=== PATIENT | male | born 1950 | race Caucasian/White ===

== ENCOUNTER 2017-08-20 15:51 | Inpatient (IN) ==
[2017-08-20] MEDS ORDERED: *HR* Morphine 2 MG/ML SYRINGE IVP ONE (16:15)
[2017-08-20] MEDS ORDERED: Ondansetron 4 MG/2 ML VIAL IVP ONE (16:15)
--- NOTE | 2017-08-20 16:15 | Emergency Department Note ---
Disposition Clinical Impression: Transaminitis, Hypernatremia, Right upper quadrant pain Urinary tract infection Qualifiers: Urinary tract infection type: site unspecified Hematuria presence: with hematuria Qualified Code(s): N39.0 - Urinary tract infection, site not specified ; R31.9 - Hematuria, unspecified; R31.9 - Hematuria, unspecified Cholelithiasis Qualifiers: Cholelithiasis location: gallbladder Cholecystitis presence: with cholecystitis Cholecystitis acuity: acute Biliary obstruction: with biliary obstruction Qualified Code(s): K80.01 - Calculus of gallbladder with acute cholecystitis with obstruction Pneumonia Qualifiers: Pneumonia type: due to unspecified organism Laterality: unspecified laterality Lung location: unspecified part of lung Qualified Code(s): J18.9 - Pneumonia, unspecified organism Disposition: Admitted As Inpatient Condition: Fair Referrals: Mumtaz Woodward MD [Primary Care Provider] - Forms: ED Satisfaction Letter, Work/School Release Time of Disposition: 19:20 General Adult HPI - General Chief complaint: ED Abdominal Pain Stated complaint: abd pain Time Seen by Provider: 08/20/17 15:57 Source: patient Limitations: no limitations Nursing Notes Reviewed: Yes Vital Signs Reviewed: Yes - History of Present Illness HPI Narrative: Mr. Corona, 66-year-old male, presents from [facility] with concern of elevated white count found today on routine labs. Patient has severe Alzheimer's disease and is unable to answer direct questions. PMH: Alzheimer's disease, GERD, mass and lump of neck, tremor, dementia, malignant neoplasm of colon, essential hypertension, anxiety disorder, history of alcohol abuse Patient is DNR-CCA. Documentation on file. Pain Scale: 6 - Related Data Allergies Allergy/AdvReac Type Severity Reaction Status Date / Time No Known Allergies Allergy Verified 08/20/17 16:24 Limitations: ROS unobtainable due to patients medical condition Past Medical History - Past Medical History Medical history: Reports: cancer, GERD, seizures Psychiatric history: Reports: anxiety - Social History Smoking Status: Never smoker Smokeless Tobacco Status: No Alcohol use: Reports: none Drug use: Reports: none Physical Exam Vital Signs Reviewed General: Patient is awake and in no acute distress. He is able to follow me with his eyes. He appears older than stated age. He is nonverbal. HEENT: No facial asymmetry. Head is normocephalic and atraumatic. PERRLA. Oral mucosa dry. Cardiovascular: Heart regular rate and rhythm without clicks, rubs, gallops, or murmurs. No JVD. PMI nondisplaced. Respiratory: Symmetric chest rise with good respiratory effort. Bilateral breath sounds are clear without wheezing, crackles, or rhonchi. Abdomen: Bowel sounds present normoactive x-4 quadrants. Abdomen is soft, nondistended. Right upper quadrant tenderness. No organomegaly noted. Musculoskeletal: Unable to assess muscle strength secondary to patient's medical status. Neuro: Unable to assess patient's neurologic status secondary to his current baseline medical condition. Psych: Patient's affect is appropriate for situation. - General Limitations: no limitations General appearance: alert, in no apparent distress Course Course Narrative: Patient had a CT with contrast of his abdomen and pelvis 08/09 which showed a contracted gallbladder with either a wall of calcification or a rim calcified stone in the fundus. No dilation of biliary tree. Also showed transverse colon edema consistent with potential colitis. Patient's RUQ pain coupled with transaminitis and elevated ALP concerning for cholecystitis. Will cover with empiric antibiotics at this time. Usually, patient is hypernatremic. Urinalysis concerning for UTI. Empiric ceftriaxone will cover both UTI and possible infection cholecystitis. We will admit the patient to the hospitalist for continued evaluation and management. Discussed the patient with the admitting hospitalist, Dr. Collins, who agrees to accept the patient for continued evaluation and management. Vital Signs Temperature 98.2 F 08/20/17 15:52 Pulse Rate 112 08/20/17 15:52 Respiratory Rate 18 08/20/17 15:52 Blood Pressure 107/69 08/20/17 15:52 O2 Sat by Pulse Oximetry 95 08/20/17 15:52 Temperature 98.2 F 08/20/17 15:52 Pulse Rate 99 08/20/17 18:59 Respiratory Rate 18 08/20/17 18:59 Blood Pressure 101/66 08/20/17 18:59 O2 Sat by Pulse Oximetry 94 08/20/17 18:59 Oxygen Delivery Oxygen Delivery Room Air Medical Decision Making - Lab Data Result diagrams: 08/20/17 16:39 08/20/17 16:39 Lab Results 08/20/17 08/20/17 08/20/17 Range/Units 16:32 16:39 16:39 WBC 10.4 (4.3-11.1) K/mcL RBC 3.66 L (4.19-5.50) M/mcL Hgb 11.6 L (12.9-16.9) g/dL Hct 37.8 (37.5-50.1) % MCV 103.3 H (83.0-100.0) fL MCH 31.7 (28.0-33.3) pg MCHC 30.7 L (31.6-35.5) g/dL RDW 15.5 H (11.5-14.5) % Plt Count 570 H (140-400) K/mcL MPV 8.8 L (9.4-12.4) fL Immature Gran % 0.2 (0-4) % Seg Neutrophils % 81.3 % Lymphocytes % 12.4 % Monocytes % 5.2 % Eosinophils % 0.6 % Basophils % 0.3 % Neutrophils # 8.5 (1.6-8.9) K/mcL Lymphocytes # 1.3 (0.6-4.6) K/mcL Monocytes # 0.5 (0.0-1.3) K/mcL Eosinophils # 0.1 (0.0-0.6) K/mcL Basophils # 0.0 (0.0-0.2) K/mcL Sodium 157 H (136-145) mEq/L Potassium 3.9 (3.5-4.5) mEq/L Chloride 122 H (98-109) mEq/L Carbon Dioxide 23 (19-29) mEq/L BUN 69 H (8-26) mg/dL Creatinine 1.55 H (0.72-1.25) mg/dL Est GFR ( Amer) 54 L (> 60) Est GFR (Non-Af Amer) 45 L (> 60) BUN/Creatinine Ratio 45 H (6-26) Glucose 141 H (70-99) mg/dL Calculated Osmolality 346 H (280-300) Lactic Acid (0.5-2.2) mmol/L Calcium 9.1 (8.6-10.8) mg/dL Total Bilirubin 0.2 (0.2-1.2) mg/dL Direct Bilirubin 0.1 (0.0-0.5) mg/dL Indirect Bilirubin 0.1 (0.0-1.2) mg/dL AST 61 H (5-34) Units/L ALT 121 H (0-55) Units/L Alkaline Phosphatase 181 H (38-126) Units/L Serum Total Protein 8.1 (6.0-8.3) g/dL Albumin 2.5 L (3.5-5.0) g/dL Globulin 5.6 H (2.4-3.5) g/dL Albumin/Globulin Ratio 0.4 L (1.1-2.2) Lipase 21 (8-78) Units/L Urine Color Yellow (Yellow) Urine Clarity Turbid A (Clear) Urine pH 5.5 (5.0-8.0) pH Units Ur Specific [place] 1.021 (1.010-1.025) Urine Protein Trace (Neg-Trace) mg/dL Urine Glucose (UA) Normal (Normal) mg/dL Urine Ketones Negative (Negative) mg/dL Urine Blood Small H (Negative) Urine Nitrite Negative (Negative) Urine Bilirubin Negative (Negative) Urine Urobilinogen Normal (Normal) mg/dL Ur Leukocyte Esterase Large H (Negative) Urine Microscopic RBC 0-3 (0-3) per hpf Urine Microscopic WBC TNTC H (0-3) per hpf Ur Squamous Epith Cells Moderate H (None-Few) per lpf Urine Bacteria Moderate H (None-Few) per hpf Hyaline Casts None Seen (None-Few) per lpf Ur Culture Indicated? YES A (NO) 08/20/17 Range/Units 16:39 WBC (4.3-11.1) K/mcL RBC (4.19-5.50) M/mcL Hgb (12.9-16.9) g/dL Hct (37.5-50.1) % MCV (83.0-100.0) fL MCH (28.0-33.3) pg MCHC (31.6-35.5) g/dL RDW (11.5-14.5) % Plt Count (140-400) K/mcL MPV (9.4-12.4) fL Immature Gran % (0-4) % Seg Neutrophils % % Lymphocytes % % Monocytes % % Eosinophils % % Basophils % % Neutrophils # (1.6-8.9) K/mcL Lymphocytes # (0.6-4.6) K/mcL Monocytes # (0.0-1.3) K/mcL Eosinophils # (0.0-0.6) K/mcL Basophils # (0.0-0.2) K/mcL Sodium (136-145) mEq/L Potassium (3.5-4.5) mEq/L Chloride (98-109) mEq/L Carbon Dioxide (19-29) mEq/L BUN (8-26) mg/dL Creatinine (0.72-1.25) mg/dL Est GFR ( Amer) (> 60) Est GFR (Non-Af Amer) (> 60) BUN/Creatinine Ratio (6-26) Glucose (70-99) mg/dL Calculated Osmolality (280-300) Lactic Acid 1.2 (0.5-2.2) mmol/L Calcium (8.6-10.8) mg/dL Total Bilirubin (0.2-1.2) mg/dL Direct Bilirubin (0.0-0.5) mg/dL Indirect Bilirubin (0.0-1.2) mg/dL AST (5-34) Units/L ALT (0-55) Units/L Alkaline Phosphatase (38-126) Units/L Serum Total Protein (6.0-8.3) g/dL Albumin (3.5-5.0) g/dL Globulin (2.4-3.5) g/dL Albumin/Globulin Ratio (1.1-2.2) Lipase (8-78) Units/L Urine Color (Yellow) Urine Clarity (Clear) Urine pH (5.0-8.0) pH Units Ur Specific [place] (1.010-1.025) Urine Protein (Neg-Trace) mg/dL Urine Glucose (UA) (Normal) mg/dL Urine Ketones (Negative) mg/dL Urine Blood (Negative) Urine Nitrite (Negative) Urine Bilirubin (Negative) Urine Urobilinogen (Normal) mg/dL Ur Leukocyte Esterase (Negative) Urine Microscopic RBC (0-3) per hpf Urine Microscopic WBC (0-3) per hpf Ur Squamous Epith Cells (None-Few) per lpf Urine Bacteria (None-Few) per hpf Hyaline Casts (None-Few) per lpf Ur Culture Indicated? (NO) Critical Care Time Critical Care Time: Yes Total Critical Care Time: 35 Attestation: Critical care time 35 minutes. Attestation Statement - Attestation Attestation: Patient was seen with resident physician. I reviewed the history, physical, assessment and plan, and agree with the findings. I also personally evaluated this patient and had [id number] time with this patient. 66-year-old male sent to the emergency department today from detention because of an elevated white blood cell count. Patient is unable to provide any history and is really the only history got. Looking at his chart it seems like he has had some issues with his gallbladder in the past. On examination vital signs patient is mildly tachycardic blood pressure is good. ENT shows no abnormalities. Chest is regular rhythm and rate. Lungs slightly decreased breath sounds on the right side. Abdomen is soft he does not express tenderness there is no guarding or rigidity. Extremities unremarkable. Neurologically patient is unable to follow commands. ED course workup revealed hypernatremia. He also has probable pneumonia and urinary tract infection. We will start on antibiotics and have admitted to the hospitalist service for further evaluation and treatment. Critical care time 35 minutes. Agree with the resident physician assessment and plan.
[2017-08-20 16:47] LABS: Basophils % 0.3 %; Eosinophils # 0.1 K/mcL (0.0-0.6); Eosinophils % 0.6 %; Hematocrit 37.8 % (37.5-50.1); Hemoglobin 11.6 g/dL (12.9-16.9); Immature Granulocytes % 0.2 % (0-4); Lymphocytes # 1.3 K/mcL (0.6-4.6); Lymphocytes % 12.4 %; Mean Corpuscular HGB Conc 30.7 g/dL (31.6-35.5); Mean Corpuscular Hemoglobin 31.7 pg (28.0-33.3); Mean Corpuscular Volume 103.3 fL (83.0-100.0); Mean Platelet Volume 8.8 fL (9.4-12.4); Monocytes # 0.5 K/mcL (0.0-1.3); Monocytes % 5.2 %; Neutrophils # 8.5 K/mcL (1.6-8.9); Platelet Count 570 K/mcL (140-400); Red Blood Count 3.66 M/mcL (4.19-5.50); Red Cell Distribution Width 15.5 % (11.5-14.5); Segmented Neutrophils % 81.3 %
[2017-08-20 16:48] LABS: Bilirubin,Urine Negative (Negative); Blood,Urine Small (Negative); Clarity,Urine Turbid (Clear); Color,Urine Yellow (Yellow); Glucose,Urine (UA) Normal (Normal); Ketones,Urine Negative (Negative); Leukocyte Esterase,Urine Large (Negative); Nitrite,Urine Negative (Negative); PH,Urine 5.5 pH Units (5.0-8.0); Protein,Urine Trace mg/dL (Neg-Trace); Specific Gravity,Urine 1.021 (1.010-1.025); Urobilinogen,Urine Normal (Normal)
[2017-08-20 16:52] LABS: Bacteria,Urine Moderate per hpf (None-Few); Hyaline Casts,Urine None Seen per lpf (None-Few); RBC,Urine 0-3 per hpf (0-3); Squamous Epithelial Cell,Urine Moderate per lpf (None-Few); WBC,Urine TNTC per hpf (0-3)
[2017-08-20 17:02] LABS: Albumin 2.5 g/dL (3.5-5.0); Albumin/Globulin Ratio 0.4 (1.1-2.2); Bilirubin,Direct 0.1 mg/dL (0.0-0.5); Bilirubin,Indirect 0.1 mg/dL (0.0-1.2); Bilirubin,Total 0.2 mg/dL (0.2-1.2); Calcium 9.1 mg/dL (8.6-10.8); Globulin 5.6 g/dL (2.4-3.5); Potassium 3.9 mEq/L (3.5-4.5); Total Protein 8.1 g/dL (6.0-8.3)
[2017-08-20] MEDS ORDERED: 0.9 % Sodium Chloride 1,000 ML IVC ONE (17:08)
[2017-08-20] MEDS ORDERED: Vancomycin 1,500 MG in D5% in Water 250 ML IVPB STA (19:33)
[2017-08-20] MEDS ORDERED: cefTRIAXone 1,000 MG in Water for inj. (sterile) 10 ML IVPB ONE (19:45)
[2017-08-20] MEDS ORDERED: *HR* HYDROcodone/Acet 5/325 mg TABLET PO PRN (22:01)
[2017-08-20] MEDS ORDERED: Ondansetron 4 MG/2 ML VIAL IVP PRN (22:01)
--- NOTE | 2017-08-20 22:25 | Internal Med History&Physical ---
Date of Encounter: 08/20/17 Time of Encounter: 22:22 Assessment and Plan (1) Hypernatremia Current visit: Yes Status: Acute - Likely secondary to decreased oral intake of free water - Na of 157 in ED - Given 1 L NS in ED. - Clinically dry. Will give additional NS at 100 mL/h for fluid expansion as well as free water PO 300 mL TID if able to pass swallow eval - If unable to pass swallow eval, will consider NG tube and give free water - AM labs (2) CONTRERAS (acute kidney injury) Current visit: Yes Status: Acute - Prerenal in nature. Likely secondary to dehydration - BUN/Cr of 69/1.55 - No baseline to compare. - Will hydrate as above and monitor (3) Urinary tract infection Current visit: Yes Status: Acute - UA in ED significant for WBCs, Leuocyte esterase - Received vanc, ceftriaxone, and cefepime in ED - Will give zosyn for UTI and aspiration PNA coverage and discontinue other abx - No white count, afebrile. - Await culture results Qualifiers: Urinary tract infection type: acute cystitis Hematuria presence: with hematuria Qualified Code(s): N30.01 - Acute cystitis with hematuria (4) Pneumonia Current visit: Yes Status: Acute - Mild opacity in RLL seen on CXR - Possible aspiration given mental status - Swallow eval pending. - Will give zosyn to cover both UTI and aspiration PNA - Will hold off on vanc at this time. Afebrile, no WBC, VSS - No SOB, cough observed during interview. Qualifiers: Pneumonia type: due to unspecified organism Laterality: right Lung location: lower lobe of lung Qualified Code(s): J18.1 - Lobar pneumonia, unspecified organism (5) Alzheimers disease Current visit: Yes Status: Acute - Pt non verbal at time of interview - Reportedly at baseline per ECF - Will treat underlying disorders Qualifiers: Alzheimer's disease onset: unspecified onset Dementia behavioral disturbance: without behavioral disturbance Qualified Code(s): G30.9 - Alzheimer's disease, unspecified; F02.80 - Dementia in other diseases classified elsewhere without behavioral disturbance; F02.80 - Dementia in other diseases classified elsewhere without behavioral disturbance; F02.80 - Dementia in other diseases classified elsewhere without behavioral disturbance (6) DVT prophylaxis Current visit: Yes Status: Acute - Heparin 5000 units q12 Internal Medicine - H&P: HPI Chief complaint: Abnormal labs Admitted From: Emergency Dept Plans for Post Hospital Care: Home History of present illness: Mr. Corona is a 66 year old male with a PHx of severe alzheimer dementia presents to ED from shelter care facility after routine bloodwork found elevated WBC of 11.3. He is non verbal at time of interview and unable to provide HPI. In the ED, vitals unremarkable. Labs significant for hypernatremia, CONTRERAS, transaminitis, UTI on UA. CXR showed possible minimal opacity on right lower and middle lobe. CT abdomen showed no acute process with possible rim gallstones. . Past Med Surg Social Fam HX - Past Medical History Medical history: cancer, GERD, seizures Psychiatric history: anxiety - Social History Smoking Status: Never smoker Smokeless Tobacco Status: No Alcohol use: none Drug use: none Internal Medicine - H&P: Meds 3 Allergy/AdvReac Type Severity Reaction Status Date / Time No Known Allergies Allergy Verified 08/20/17 16:24 ROS unobtainable: due to mental status All Systems PM: A 10-system review of systems was performed and is negative for pertinent findings except as documented above in the HPI. - Constitutional Vitals: Temp Pulse Resp BP Pulse Ox 98.2 F 108 15 108/69 94 08/20/17 20:40 08/20/17 20:40 08/20/17 20:40 08/20/17 20:40 08/20/17 20:40 Exam: Gen.: Vitals noted. No acute distress. AAOx0. Non verbal. HEENT: PERRL, Normocephalic, atraumatic,dry mucus membranes Cardiac: RRR, no murmur, +S1/S2 Pulmonary: CTA bilaterally. Shallow breathing. Abdomen: soft, no wincing on palpation, BS noted, no guarding MSK: ROM intact, no joint swelling noted Extremities: no BLE edema, nontender calf, no cyanosis or clubbing Neuro: A&Ox0 Psych: Appropriate mood and behavior Internal Med - H&P Results - Labs CBC & Chem 7: 08/20/17 16:39 08/20/17 16:39
[2017-08-21] MEDS: Piperacillin/Tazobactam 3.375 GM in D5% in Water 50 ML IVPB SCH ×4 (00:18→23:27)
[2017-08-21] MEDS: 0.9 % Sodium Chloride 1,000 ML IVC SCH ×2 (00:19→08:46)
[2017-08-21] MEDS ORDERED: Ketorolac 30 MG/ML VIAL IVP ONE (01:07)
--- NOTE | 2017-08-21 01:10 | Event Note ---
Date of Encounter: 08/21/17 Time of Encounter: 01:09 Patient and examined with hospital medical biller. I agree with assessment and plan
[2017-08-21] MEDS ORDERED: 0.9 % Sodium Chloride 1,000 ML ONE (02:36)
[2017-08-21 05:49] LABS: Basophils % 0.1 %; Eosinophils # 0.1 K/mcL (0.0-0.6); Eosinophils % 0.9 %; Hematocrit 34.6 % (37.5-50.1); Hemoglobin 10.4 g/dL (12.9-16.9); Immature Granulocytes % 0.4 % (0-4); Lymphocytes # 1.2 K/mcL (0.6-4.6); Lymphocytes % 9.1 %; Mean Corpuscular HGB Conc 30.1 g/dL (31.6-35.5); Mean Corpuscular Hemoglobin 31.6 pg (28.0-33.3); Mean Corpuscular Volume 105.2 fL (83.0-100.0); Mean Platelet Volume 9.4 fL (9.4-12.4); Monocytes # 0.6 K/mcL (0.0-1.3); Monocytes % 4.7 %; Neutrophils # 11.5 K/mcL (1.6-8.9); Platelet Count 529 K/mcL (140-400); Red Blood Count 3.29 M/mcL (4.19-5.50); Red Cell Distribution Width 15.5 % (11.5-14.5); Segmented Neutrophils % 84.8 %
[2017-08-21 06:11] LABS: BUN/Creatinine Ratio 49 (6-26); Blood Urea Nitrogen 67 mg/dL (8-26); Calcium 8.8 mg/dL (8.6-10.8); Carbon Dioxide 24 mEq/L (19-29); Chloride 123 mEq/L (98-109); Glucose 110 mg/dL (70-99); Magnesium 2.5 mg/dL (1.6-2.6); Osmolality,Calculated 342 (280-300); Potassium 4.1 mEq/L (3.5-4.5); Sodium 156 mEq/L (136-145); eGFR For African Americans > 60 (> 60); eGFR For Non-African Americans 51 (> 60)
[2017-08-21] MEDS: *HR* Heparin 5,000 UNIT/ML VIAL SQ SCH ×2 (07:02→18:20)
[2017-08-21] MEDS ORDERED: *HR* Morphine 2 MG/ML SYRINGE IVP ONE ×2 (11:34→12:05)
[2017-08-21] MEDS ORDERED: *HR* Morphine 2 MG/ML SYRINGE IVP PRN (12:28)
[2017-08-21] MEDS: ALPRAZolam 0.5 MG TABLET PO SCH (12:40)
--- NOTE | 2017-08-21 12:41 | Internal Med Progress Note ---
Date of Encounter: 08/21/17 Time of Encounter: 11:50 - Assessment and plan (1) Right upper quadrant pain Current Visit: Yes Status: Acute Assessment and plan: Likely secondary to cholelithiasis awaiting Abd US continue empiric Abx (Zosyn) Pain control IV fluids will obtain blood cultures, Lactate level will closely monitor LFTs will obtain surgery consultation as per abd US findings (2) Cholelithiasis Current Visit: Yes Status: Acute Assessment and plan: as listed above Qualifiers: Cholelithiasis location: gallbladder Cholecystitis presence: with cholecystitis Cholecystitis acuity: unspecified acuity Biliary obstruction: without biliary obstruction Qualified Code(s): K80.00 - Calculus of gallbladder with acute cholecystitis without obstruction (3) Transaminitis Current Visit: Yes Status: Acute (4) Pneumonia Current Visit: Yes Status: Acute Assessment and plan: continue zosyn at this time, will broaden abx coverage as needed per clinical response f/u blood cultures Qualifiers: Pneumonia type: due to unspecified organism Laterality: right Lung location: lower lobe of lung Qualified Code(s): J18.1 - Lobar pneumonia, unspecified organism (5) CONTRERAS (acute kidney injury) Current Visit: Yes Status: Acute Assessment and plan: renal function improved from previous day will continue IV fluids (6) Hypernatremia Current Visit: Yes Status: Acute Assessment and plan: improved from previous day free water deficit noted to be 5.9L will start 0.45% NS at 75cc/hr continue free water PO intake closely monitor Na levels pt passed speech evaluation and started PO diet as per speech therapist's recommendations (7) Urinary tract infection Current Visit: Yes Status: Acute Assessment and plan: f/u urine cultures continue abx Qualifiers: Urinary tract infection type: acute cystitis Hematuria presence: with hematuria Qualified Code(s): N30.01 - Acute cystitis with hematuria (8) Alzheimers disease Current Visit: Yes Status: Chronic Assessment and plan: continue home medications Qualifiers: Alzheimer's disease onset: unspecified onset Dementia behavioral disturbance: without behavioral disturbance Qualified Code(s): G30.9 - Alzheimer's disease, unspecified; F02.80 - Dementia in other diseases classified elsewhere without behavioral disturbance; F02.80 - Dementia in other diseases classified elsewhere without behavioral disturbance; F02.80 - Dementia in other diseases classified elsewhere without behavioral disturbance (9) DVT prophylaxis Current Visit: Yes Status: Acute Assessment and plan: Heparin SQ - Subjective Interval history: Patient seen and examined at bedside. Resting in bed and noted to have diffuse upper extremity spasms, grimicing and contracted upper extremities. Pt remains nonverbal but awake, he is noted to grimace further upon diffuse abd palpation, more localized to RUQ. CT abd/pelvis concerning for Calcified gallstones with elevated LFTs will obtain Stat abd US noted to have low grade fever, obtaining blood cultures, lactate level. will continue Pip/tazo at this time continue IV fluids restarted home dose of xanax and bentyl. - Constitutional Vitals: Temp Pulse Resp BP Pulse Ox 99.8 F H 101 37 114/69 98 08/21/17 12:10 08/21/17 12:10 08/21/17 12:10 08/21/17 12:10 08/21/17 12:10 General appearance: Present: A&O X 0, mild distress (diffuse abd pain) - Head Head exam: Present: atraumatic, normocephalic - Eye Eye exam: Present: conjuntiva pink, sclera anicteric - Respiratory Respiratory exam: Present: tachypnea. Absent: accessory muscle use, respiratory distress, wheezes - Cardiovascular Cardiovascular exam: Present: +S1, +S2, tachycardia. Absent: diastolic murmur, systolic murmur - GI/Abdominal GI/Abdominal exam: Present: normal bowel sounds, soft, tenderness (diffuse tenderness to palpation), no peritoneal signs. Absent: distended - Extremities Exam Extremities exam: Present: warm, radial pulses palpable and symmetrical. Absent : calf tenderness, cyanotic, pedal edema Additional comments: contracted bilateral upper extremities - Neurological Exam Neurological exam: Present: alert Internal Medicine: Result - Labs CBC & Chem 7: 08/21/17 04:16 08/21/17 04:16 Labs: Short CBC 08/21/17 Range/Units 04:16 WBC 13.6 H (4.3-11.1) K/mcL Hgb 10.4 L (12.9-16.9) g/dL Hct 34.6 L (37.5-50.1) % Plt Count 529 H (140-400) K/mcL Neutrophils # 11.5 H (1.6-8.9) K/mcL BMP 08/21/17 04:16 Sodium 156 H Potassium 4.1 Chloride 123 H Carbon Dioxide 24 BUN 67 H Creatinine 1.38 H Glucose 110 H Calcium 8.8 - VTE Documentation of Mechanical Device: Intermittent pneumatic compression device Consult Discharge Plan - Plan Referrals: Mumtaz Woodward MD [Primary Care Provider] -
[2017-08-21] MEDS: Acetaminophen 325 MG TABLET PO PRN (12:43)
[2017-08-21 13:23] LABS: Alanine Aminotransferase 93 Units/L (0-55); Albumin 2.5 g/dL (3.5-5.0); Albumin/Globulin Ratio 0.5 (1.1-2.2); Alkaline Phosphatase 167 Units/L (38-126); Aspartate Amino Transferase 42 Units/L (5-34); Bilirubin,Direct 0.2 mg/dL (0.0-0.5); Globulin 4.9 g/dL (2.4-3.5); Total Protein 7.4 g/dL (6.0-8.3)
[2017-08-21 13:25] LABS: Bilirubin,Total < 0.2 mg/dL (0.2-1.2)
[2017-08-21] MEDS: Naloxone 0.4 MG/ML INJ IVP PRN ×2 (13:40→14:20)
[2017-08-21 14:24] LABS: ABG Base Excess 1 mEq/L (-2 to 3); ABG HCO3 28 mEq/L (21-27); ABG Oxygen Saturation 98 % (95-98); ABG PCO2 55 mmHg (35-45); ABG PH 7.32 pH Units (7.32-7.45); ABG PO2 120 mmHg (85-104); ABG TCO2 30 mEq/L (20-26)
[2017-08-21] MEDS: Thiamine (B-1) 100 MG TABLET PO SCH ×2 (16:39→21:59)
[2017-08-21] MEDS ORDERED: Cefepime HCl 2,000 MG in D5% in Water (Mini-Bag+) 100 ML IVPB ONE (19:32)
[2017-08-21] MEDS ORDERED: Levofloxacin 750 MG/150 ML 750 MG/150 ML BAG IVPB ONE (19:34)
[2017-08-21] MEDS ORDERED: levETIRAcetam 250 MG TABLET PO SCH (21:00)
[2017-08-21] MEDS: CRANBERRY FRUIT EXTRACT 425 MG PO SCH (21:44)
[2017-08-21] MEDS: levETIRAcetam 500 MG/5 ML UDC PO SCH (21:58)
[2017-08-21] MEDS: Divalproex Sodium 125 MG CAPSULE PO SCH (21:58)
[2017-08-21] MEDS: Melatonin 3 MG TABLET PO SCH (21:59)
[2017-08-22] MEDS: *HR* Heparin 5,000 UNIT/ML VIAL SQ SCH ×2 (05:02→17:52)
[2017-08-22] MEDS: Acetaminophen 325 MG TABLET PO PRN ×2 (05:07→12:06)
[2017-08-22 06:59] LABS: Basophils % 0.4 %; Eosinophils # 0.1 K/mcL (0.0-0.6); Eosinophils % 0.9 %; Hemoglobin 10.9 g/dL (12.9-16.9); Immature Granulocytes % 0.2 % (0-4); Lymphocytes # 1.2 K/mcL (0.6-4.6); Lymphocytes % 14.8 %; Mean Corpuscular HGB Conc 30.3 g/dL (31.6-35.5); Mean Corpuscular Hemoglobin 31.6 pg (28.0-33.3); Mean Corpuscular Volume 104.3 fL (83.0-100.0); Mean Platelet Volume 9.2 fL (9.4-12.4); Monocytes # 0.3 K/mcL (0.0-1.3); Monocytes % 3.5 %; Neutrophils # 6.6 K/mcL (1.6-8.9); Platelet Count 494 K/mcL (140-400); Red Blood Count 3.45 M/mcL (4.19-5.50); Red Cell Distribution Width 14.9 % (11.5-14.5); Segmented Neutrophils % 80.2 %
[2017-08-22 07:06] LABS: Alanine Aminotransferase 77 Units/L (0-55); Albumin 2.7 g/dL (3.5-5.0); Albumin/Globulin Ratio 0.5 (1.1-2.2); Alkaline Phosphatase 156 Units/L (38-126); Aspartate Amino Transferase 41 Units/L (5-34); BUN/Creatinine Ratio 45 (6-26); Bilirubin,Total 0.5 mg/dL (0.2-1.2); Blood Urea Nitrogen 57 mg/dL (8-26); Calcium 9.4 mg/dL (8.6-10.8); Carbon Dioxide 21 mEq/L (19-29); Chloride 120 mEq/L (98-109); Globulin 5.1 g/dL (2.4-3.5); Glucose 83 mg/dL (70-99); Magnesium 2.5 mg/dL (1.6-2.6); Osmolality,Calculated 333 (280-300); Potassium 3.4 mEq/L (3.5-4.5); Sodium 154 mEq/L (136-145); Total Protein 7.8 g/dL (6.0-8.3); eGFR For African Americans > 60 (> 60); eGFR For Non-African Americans 57 (> 60)
[2017-08-22 07:28] LABS: Phosphorous 0.7 mg/dL (2.3-4.7)
[2017-08-22] MEDS: Folic Acid 1 MG TABLET PO SCH (08:24)
[2017-08-22] MEDS: Divalproex Sodium 125 MG CAPSULE PO SCH ×2 (08:24→19:39)
[2017-08-22] MEDS: levETIRAcetam 500 MG/5 ML UDC PO SCH ×2 (08:24→19:38)
[2017-08-22] MEDS: ALPRAZolam 0.5 MG TABLET PO SCH (08:24)
[2017-08-22] MEDS: Furosemide 20 MG TABLET PO SCH (08:24)
[2017-08-22] MEDS: Piperacillin/Tazobactam 3.375 GM in D5% in Water 50 ML IVPB SCH ×2 (08:29→16:52)
--- NOTE | 2017-08-22 08:44 | Palliative - Consult Note ---
Date of Encounter: 08/21/17 Time of Encounter: 17:15 - Assessment and Plan (1) Dyspnea Current Visit: Yes Status: Acute Assessment and plan: Continues treatment for pneumonia per hospitalist. continues with IV atb therapy, aerosols, supportive oxygen and bipap PRN. Monitor Qualifiers: Dyspnea type: unspecified Qualified Code(s): R06.00 - Dyspnea, unspecified (2) Goals of care, counseling/discussion Current Visit: Yes Status: Acute Assessment and plan: Was able to contact pt niece-n-law, Luba Flor who is listed as emergency contact. She reports pt was homeless, has no children, and was once for a couple of years, but . States pt only next of kin living is 2 nephew and herself. They reside in [place]. Discussed that we have DNR-A form from the assisted, but no POA on file here and Maunie states they do not have POA. She states that she does not have POA forms, but did give me the name of the hospital in [facility], where she says they were completed. I have called the medical records dept at that hospital, and left message, as it is after hours. Will f/u iin am. (3) Pneumonia Current Visit: Yes Status: Acute Qualifiers: Pneumonia type: due to unspecified organism Laterality: right Lung location: lower lobe of lung Qualified Code(s): J18.1 - Lobar pneumonia, unspecified organism (4) Urinary tract infection Current Visit: Yes Status: Acute Qualifiers: Urinary tract infection type: acute cystitis Hematuria presence: with hematuria Qualified Code(s): N30.01 - Acute cystitis with hematuria Palliative-CN HPI - Data of Consult Consult date: 08/21/17 Requesting Physician: Cande Corona MD Primary Care Provider: Mumtaz Woodward MD - Consult Narrative History of present illness: Mr. Corona is a 66 year old male who has a history of dementia, and resides at [facility], who was admitted after found to have elevated WBC on labwork. He is unable to provide any medical history - information obtained from chart review. He is currently being treated for pneumonia and CONTRERAS - renal function improving. His urine culture was also positive with enterococcus. Awaiting results from Abdominal US to r/o cholecystitis as well. He remains on IV atb, IV fluids. He had difficulty maintaining oxygenation today and currently requiring bipap. He has history of Alzheimers dementia, GERD , colon cancer, ETOH abuse. Upon my visit, he remains on bipap. He is restless. pulling at bipap, and does not follow any commands. No family is present. CC: Cande Corona MD Past Med Surg Social Fam HX - Past Medical History Medical history: cancer, GERD, seizures Psychiatric history: anxiety - Social History Smoking Status: Never smoker Smokeless Tobacco Status: No Alcohol use: none Drug use: none Medications and Allergies ALPRAZolam [Xanax 0.5 MG Tablet] 0.5 mg PO DAILY 08/21/17 [History] Acetaminophen [Tylenol] 500 mg PO Q4H PRN 08/21/17 [History] Cranberry Fruit Extract [Cranberry] 425 mg PO BID 08/21/17 [History] Dicyclomine [Bentyl] 40 mg PO TID 08/21/17 [History] Divalproex Sodium [Depakote Sprinkle] 125 mg PO BID 08/21/17 [History] Folic Acid 1 mg PO DAILY 08/21/17 [History] Furosemide [Lasix] 20 mg PO DAILY 08/21/17 [History] HYDROcodone/Acet 5/325 mg [Shohola 5-325 mg] 1 tab PO Q6H PRN 08/21/17 [History] LevETIRAcetam [Keppra] 500 mg PO BID 08/21/17 [History] Melatonin 6 mg PO DAILY 08/21/17 [History] Pantoprazole Sodium [Protonix] 40 mg PO DAILY 08/21/17 [History] Thiamine (B-1) [Vitamin B-1] 100 mg PO TID 08/21/17 [History] 3 Allergy/AdvReac Type Severity Reaction Status Date / Time No Known Allergies Allergy Verified 08/20/17 16:24 ROS unobtainable: due to mental status Palliative Care-Exam - Constitutional Vitals: Temp Pulse Resp BP Pulse Ox 98.7 F 107 16 112/65 100 08/22/17 06:40 08/22/17 06:40 08/22/17 06:40 08/22/17 06:40 08/22/17 06:40 General appearance: Present: no acute distress - Head Head Exam: Present: normal inspection, normocephalic - Eye Eye exam: Present: normal appearance, PERRL - Respiratory Respiratory exam: Present: decreased breath sounds, CTAB - Cardiovascular Cardiovascular exam: Present: +S1, +S2 - GI/Abdominal Exam GI/Abdominal exam: Present: normal bowel sounds, soft - Extremities Exam Extremities exam: Present: normal capillary refill, normal inspection - Neurological Exam Neurological exam: Present: alert Additional comments: Disoriented and restless, pulling at bipap. Does not follow commands - Skin Skin exam: Present: dry, pallor, warm Internal Medicine - CN: Reslt - Labs CBC & Chem 7: 08/22/17 06:27 08/22/17 06:27 Labs: Short CBC 08/22/17 Range/Units 06:27 WBC 8.2 (4.3-11.1) K/mcL Hgb 10.9 L (12.9-16.9) g/dL Hct 36.0 L (37.5-50.1) % Plt Count 494 H (140-400) K/mcL Neutrophils # 6.6 (1.6-8.9) K/mcL BMP 08/21/17 08/21/17 08/22/17 04:16 21:06 06:27 Sodium 156 H 156 H 154 H Potassium 4.1 3.4 L Chloride 123 H 120 H Carbon Dioxide 24 21 BUN 67 H 57 H Creatinine 1.38 H 1.26 H Glucose 110 H 83 Calcium 8.8 9.4 Cardiac Enzymes 08/21/17 Range/Units 13:55 Troponin I 0.02 (0-0.03) ng/mL Liver Function 08/21/17 08/22/17 Range/Units 04:16 06:27 Total Bilirubin < 0.2 L 0.5 (0.2-1.2) mg/dL Direct Bilirubin 0.2 (0.0-0.5) mg/dL AST 42 H 41 H (5-34) Units/L ALT 93 H 77 H (0-55) Units/L Alkaline Phosphatase 167 H 156 H (38-126) Units/L Albumin 2.5 L 2.7 L (3.5-5.0) g/dL - ABG Interpretation ABG results: ABG ABG pH 7.32 pH Units (7.32-7.45) 08/21/17 14:22 ABG pCO2 55 mmHg (35-45) H 08/21/17 14:22 ABG pO2 120 mmHg (85-104) H 08/21/17 14:22 ABG O2 Saturation 98 % (95-98) 08/21/17 14:22 - Impressions Impressions Abdomen Ultrasound 08/21/17 13:06 IMPRESSION: Calcified gallbladder wall with prominent posterior shadowing. 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 No sonographic evidence for acute cholecystitis. D/ / Wilbert Cleaning MD / Wilbert Cleaning MD Interpreting Provider: Wilbert Cleaning MD Consult Discharge Plan - Plan Referrals: Mumtaz Woodward MD [Primary Care Provider] - Palliative Quality Palliative Quality: Screen for Code Status: NA (Awaiting clarification of POA), Screen for Goals of Care: NA, Screen for Pain: NA, If Pain Regimen Started, Initiate Bowel Regimen: NA, Screen for Nausea/Vomitting: NA
[2017-08-22] MEDS: CRANBERRY FRUIT EXTRACT 425 MG PO SCH ×2 (09:21→19:42)
[2017-08-22] MEDS: Thiamine (B-1) 100 MG TABLET PO SCH ×3 (09:24→19:40)
[2017-08-22] MEDS: *HR* HYDROcodone/Acet 5/325 mg TABLET PO PRN ×2 (09:34→19:39)
--- NOTE | 2017-08-22 09:41 | Palliative Progress Note ---
Date of Encounter: 08/22/17 Time of Encounter: 09:40 - Assessment and plan (1) Dyspnea Current Visit: Yes Status: Acute Assessment and plan: Appears improved. continues with treatment for pneumonia Qualifiers: Dyspnea type: unspecified Qualified Code(s): R06.00 - Dyspnea, unspecified (2) Goals of care, counseling/discussion Current Visit: Yes Status: Acute Assessment and plan: Was able to reach med records dept at [facility] in [place], [place], and they did have pt advanced directives on file and faxed copy. Copies placed in pt med record and chart on 3A. They do name Luba Charles (manuel-n- law) as POA.There are no alternates provided in this document. Luba did inform me yesterday she would be at appt this am, but should be able to be reached this afternoon. D/W Brittany Patel, [facility], as they have consult r/t pt gallbladder. Will inform Dr. Corona as well, and contact manuel this afternoon when available. (3) Pneumonia Current Visit: Yes Status: Acute Qualifiers: Pneumonia type: due to unspecified organism Laterality: right Lung location: lower lobe of lung Qualified Code(s): J18.1 - Lobar pneumonia, unspecified organism (4) Urinary tract infection Current Visit: Yes Status: Acute Qualifiers: Urinary tract infection type: acute cystitis Hematuria presence: with hematuria Qualified Code(s): N30.01 - Acute cystitis with hematuria - Time Spent With Patient Total time spent is greater than 50% in coordination of care (as documented) at patient's floor/unit and/or counseling patient: 25 - 35 minutes - Subjective Interval history: Patient lethargic at this time and difficult to arouse, however, primary nurse states pt was alert earlier, ate, and took medication well. Off bipap and saturations 96 at present. Appears comfortable. - Constitutional Vitals: Abnormal lab results RBC 3.45 M/mcL (4.19-5.50) L 08/22/17 06:27 Hgb 10.9 g/dL (12.9-16.9) L 08/22/17 06:27 Hct 36.0 % (37.5-50.1) L 08/22/17 06:27 MCV 104.3 fL (83.0-100.0) H 08/22/17 06:27 MCHC 30.3 g/dL (31.6-35.5) L 08/22/17 06:27 RDW 14.9 % (11.5-14.5) H 08/22/17 06:27 Plt Count 494 K/mcL (140-400) H 08/22/17 06:27 MPV 9.2 fL (9.4-12.4) L 08/22/17 06:27 ABG pCO2 55 mmHg (35-45) H 08/21/17 14:22 ABG pO2 120 mmHg (85-104) H 08/21/17 14:22 ABG HCO3 28 mEq/L (21-27) H 08/21/17 14:22 ABG Total CO2 30 mEq/L (20-26) H 08/21/17 14:22 Sodium 154 mEq/L (136-145) H 08/22/17 06:27 Potassium 3.4 mEq/L (3.5-4.5) L 08/22/17 06:27 Chloride 120 mEq/L (98-109) H 08/22/17 06:27 BUN 57 mg/dL (8-26) H 08/22/17 06:27 Creatinine 1.26 mg/dL (0.72-1.25) H 08/22/17 06:27 Est GFR (Non-Af Amer) 57 (> 60) L 08/22/17 06:27 BUN/Creatinine Ratio 45 (6-26) H 08/22/17 06:27 Calculated Osmolality 333 (280-300) H 08/22/17 06:27 Phosphorus 0.7 mg/dL (2.3-4.7) L* 08/22/17 06:27 AST 41 Units/L (5-34) H 08/22/17 06:27 ALT 77 Units/L (0-55) H 08/22/17 06:27 Alkaline Phosphatase 156 Units/L (38-126) H 08/22/17 06:27 Albumin 2.7 g/dL (3.5-5.0) L 08/22/17 06:27 Globulin 5.1 g/dL (2.4-3.5) H 08/22/17 06:27 Albumin/Globulin Ratio 0.5 (1.1-2.2) L 08/22/17 06:27 Urine Clarity Turbid (Clear) A 08/20/17 16:32 Urine Blood Small (Negative) H 08/20/17 16:32 Ur Leukocyte Esterase Large (Negative) H 08/20/17 16:32 Urine Microscopic WBC TNTC per hpf (0-3) H 08/20/17 16:32 Ur Squamous Epith Cells Moderate per lpf (None-Few) H 08/20/17 16:32 Urine Bacteria Moderate per hpf (None-Few) H 08/20/17 16:32 Ur Culture Indicated? YES (NO) A 08/20/17 16:32 General appearance: Present: disheveled, no acute distress - Respiratory Respiratory exam: Present: decreased breath sounds, CTAB - Cardiovascular Cardiovascular exam: Present: +S1, +S2 - GI/Abdominal GI/Abdominal exam: Present: hypoactive bowel sounds, soft - Extremities Exam Extremities exam: Present: normal capillary refill, normal inspection - Neurological Exam Additional comments: Drowsy - awakens with verbal/tactile stimulation, but drifts back to sleep. - Skin Skin exam: Present: dry, pallor, warm Palliative Quality Palliative Quality: Screen for Code Status: NA (Awaiting clarification of POA), Screen for Goals of Care: NA, Screen for Pain: NA, If Pain Regimen Started, Initiate Bowel Regimen: NA, Screen for Nausea/Vomitting: NA - Labs CBC & Chem 7: 08/22/17 06:27 08/22/17 06:27 Labs: Laboratory Results - last 24 hr 08/21/17 08/21/17 08/21/17 04:16 13:55 14:22 WBC RBC Hgb Hct MCV MCH MCHC RDW Plt Count MPV Immature Gran % Seg Neutrophils % Lymphocytes % Monocytes % Eosinophils % Basophils % Neutrophils # Lymphocytes # Monocytes # Eosinophils # Basophils # ABG pH 7.32 ABG pCO2 55 H ABG pO2 120 H ABG HCO3 28 H ABG Total CO2 30 H ABG O2 Saturation 98 ABG Base Excess 1 Sodium 156 H Potassium 4.1 Chloride 123 H Carbon Dioxide 24 BUN 67 H Creatinine 1.38 H Est GFR ( Amer) > 60 Est GFR (Non-Af Amer) 51 L BUN/Creatinine Ratio 49 H Glucose 110 H POC Glucose Calculated Osmolality 342 H Lactic Acid Calcium 8.8 Phosphorus Magnesium 2.5 Total Bilirubin < 0.2 L Direct Bilirubin 0.2 Indirect Bilirubin 0.0 AST 42 H ALT 93 H Alkaline Phosphatase 167 H Troponin I 0.02 Serum Total Protein 7.4 Albumin 2.5 L Globulin 4.9 H Albumin/Globulin Ratio 0.5 L Specimen Rejected 08/21/17 08/21/17 08/21/17 16:51 21:06 23:51 WBC RBC Hgb Hct MCV MCH MCHC RDW Plt Count MPV Immature Gran % Seg Neutrophils % Lymphocytes % Monocytes % Eosinophils % Basophils % Neutrophils # Lymphocytes # Monocytes # Eosinophils # Basophils # ABG pH ABG pCO2 ABG pO2 ABG HCO3 ABG Total CO2 ABG O2 Saturation ABG Base Excess Sodium 156 H Potassium Chloride Carbon Dioxide BUN Creatinine Est GFR ( Amer) Est GFR (Non-Af Amer) BUN/Creatinine Ratio Glucose POC Glucose 95 H 116 H Calculated Osmolality Lactic Acid Calcium Phosphorus Magnesium Total Bilirubin Direct Bilirubin Indirect Bilirubin AST ALT Alkaline Phosphatase Troponin I Serum Total Protein Albumin Globulin Albumin/Globulin Ratio Specimen Rejected 08/22/17 08/22/17 08/22/17 05:08 06:27 06:27 WBC 8.2 RBC 3.45 L Hgb 10.9 L Hct 36.0 L MCV 104.3 H MCH 31.6 MCHC 30.3 L RDW 14.9 H Plt Count 494 H MPV 9.2 L Immature Gran % 0.2 Seg Neutrophils % 80.2 Lymphocytes % 14.8 Monocytes % 3.5 Eosinophils % 0.9 Basophils % 0.4 Neutrophils # 6.6 Lymphocytes # 1.2 Monocytes # 0.3 Eosinophils # 0.1 Basophils # 0.0 ABG pH ABG pCO2 ABG pO2 ABG HCO3 ABG Total CO2 ABG O2 Saturation ABG Base Excess Sodium 154 H Potassium 3.4 L Chloride 120 H Carbon Dioxide 21 BUN 57 H Creatinine 1.26 H Est GFR ( Amer) > 60 Est GFR (Non-Af Amer) 57 L BUN/Creatinine Ratio 45 H Glucose 83 POC Glucose 82 Calculated Osmolality 333 H Lactic Acid Calcium 9.4 Phosphorus 0.7 L* Magnesium 2.5 Total Bilirubin 0.5 Direct Bilirubin Indirect Bilirubin AST 41 H ALT 77 H Alkaline Phosphatase 156 H Troponin I Serum Total Protein 7.8 Albumin 2.7 L Globulin 5.1 H Albumin/Globulin Ratio 0.5 L Specimen Rejected 08/22/17 08/22/17 06:46 08:00 WBC RBC Hgb Hct MCV MCH MCHC RDW Plt Count MPV Immature Gran % Seg Neutrophils % Lymphocytes % Monocytes % Eosinophils % Basophils % Neutrophils # Lymphocytes # Monocytes # Eosinophils # Basophils # ABG pH ABG pCO2 ABG pO2 ABG HCO3 ABG Total CO2 ABG O2 Saturation ABG Base Excess Sodium Potassium Chloride Carbon Dioxide BUN Creatinine Est GFR ( Amer) Est GFR (Non-Af Amer) BUN/Creatinine Ratio Glucose POC Glucose Calculated Osmolality Lactic Acid 1.9 Calcium Phosphorus Magnesium Total Bilirubin Direct Bilirubin Indirect Bilirubin AST ALT Alkaline Phosphatase Troponin I Serum Total Protein Albumin Globulin Albumin/Globulin Ratio Specimen Rejected Hemolyzed - Impressions Impressions Abdomen Ultrasound 08/21/17 13:06 IMPRESSION: Calcified gallbladder wall with prominent posterior shadowing. 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 No sonographic evidence for acute cholecystitis. D/ / Wilbert Cleaning MD / Wilbert Cleaning MD Interpreting Provider: Wilbert Cleaning MD - ABG Interpretation ABG results: ABG ABG pH 7.32 pH Units (7.32-7.45) 08/21/17 14:22 ABG pCO2 55 mmHg (35-45) H 08/21/17 14:22 ABG pO2 120 mmHg (85-104) H 08/21/17 14:22 ABG O2 Saturation 98 % (95-98) 08/21/17 14:22 Consult Discharge Plan - Plan Referrals: Mumtaz Woodward MD [Primary Care Provider] -
[2017-08-22] MEDS ORDERED: *HR* Morphine 2 MG/ML SYRINGE IVP ONE (13:11)
--- NOTE | 2017-08-22 14:13 | Event Note ---
Date of Encounter: 08/22/17 Time of Encounter: 14:10 Phone conversation with Luba Charles, pt POA. Informed her that I did reach [facility] and POA was sent. They did not have a DNR form on file there, although Luba stated it was completed. I discussed the only DNR form on file was an [place] form completed at [place], and was listed as a DNR-Arrest. Discussed levels of DNR/A and DNRCC in [place], and she states from his previously known wishes, he would desire DNRCC. She desires to continue antibiotics and treatment for infection. Discussed that gallbladder is being evaluated by surgery, and they may contact her with recommendations, and she may need to decide if she wants surgical intervention. She stated if a procedure would prevent any suffering and make him more comfortable, she would weigh the risk/ benefit and make that decision. Informed her if surgery necessary, code status would be changed to full code for that OR/immediate post op period. She verbalized understanding. Will continue to follow.
[2017-08-22] MEDS ORDERED: *HR* Morphine 2 MG/ML SYRINGE IVP PRN (15:38)
--- NOTE | 2017-08-22 15:58 | Internal Med Progress Note ---
Date of Encounter: 08/22/17 Time of Encounter: 14:55 - Assessment and plan (1) Porcelain gallbladder Current Visit: Yes Status: Acute Assessment and plan: ABD US consistent with Porcelain gallbladder will continue IV abx surgery consultation requested will continue supportive care/pain control (2) Right upper quadrant pain Current Visit: Yes Status: Acute Assessment and plan: as listed above (3) Cholelithiasis Current Visit: Yes Status: Acute Assessment and plan: as listed above Qualifiers: Cholelithiasis location: gallbladder Cholecystitis presence: with cholecystitis Cholecystitis acuity: unspecified acuity Biliary obstruction: without biliary obstruction Qualified Code(s): K80.00 - Calculus of gallbladder with acute cholecystitis without obstruction (4) Transaminitis Current Visit: Yes Status: Acute (5) Pneumonia Current Visit: Yes Status: Acute Assessment and plan: continue zosyn at this time, will broaden abx coverage as needed per clinical response f/u blood cultures Qualifiers: Pneumonia type: due to unspecified organism Laterality: right Lung location: lower lobe of lung Qualified Code(s): J18.1 - Lobar pneumonia, unspecified organism (6) CONTRERAS (acute kidney injury) Current Visit: Yes Status: Acute Assessment and plan: renal function improved from previous day will continue IV fluids (7) Hypernatremia Current Visit: Yes Status: Acute Assessment and plan: improved from previous day free water deficit noted to be 5.2L continue 0.45% NS at 75cc/hr continue free water PO intake closely monitor Na levels (8) Urinary tract infection Current Visit: Yes Status: Acute Assessment and plan: continue abx urine culture positive for enterococcus species Qualifiers: Urinary tract infection type: acute cystitis Hematuria presence: with hematuria Qualified Code(s): N30.01 - Acute cystitis with hematuria (9) Alzheimers disease Current Visit: Yes Status: Chronic Assessment and plan: continue home medications Qualifiers: Alzheimer's disease onset: unspecified onset Dementia behavioral disturbance: without behavioral disturbance Qualified Code(s): G30.9 - Alzheimer's disease, unspecified; F02.80 - Dementia in other diseases classified elsewhere without behavioral disturbance; F02.80 - Dementia in other diseases classified elsewhere without behavioral disturbance; F02.80 - Dementia in other diseases classified elsewhere without behavioral disturbance (10) DVT prophylaxis Current Visit: Yes Status: Acute Assessment and plan: Heparin SQ - Subjective Interval history: Patient seen and examined at bedside. Resting in bed and noted to be more comfortable compared to previous day. ABD US consistent with porcelain gallbladder. Surgery consultation requested. Palliative care consultation requested to establish goals of care and code status. As per pt's POA, patient's code status has been changed to DNRCC. - Constitutional Vitals: Temp Pulse Resp BP Pulse Ox 98.5 F 101 16 105/66 100 08/22/17 15:29 08/22/17 15:29 08/22/17 15:29 08/22/17 15:29 08/22/17 15:29 General appearance: Present: A&O X 0, no acute distress - Head Head exam: Present: atraumatic, normocephalic - Eye Eye exam: Present: conjuntiva pink, sclera anicteric - Respiratory Respiratory exam: Present: CTAB. Absent: accessory muscle use, rales, rhonchi, wheezes - Cardiovascular Cardiovascular exam: Present: +S1, +S2, tachycardia - GI/Abdominal GI/Abdominal exam: Present: normal bowel sounds, soft, no peritoneal signs. Absent: distended - Extremities Exam Extremities exam: Present: warm, radial pulses palpable and symmetrical. Absent : calf tenderness Internal Medicine: Result - Labs CBC & Chem 7: 08/22/17 06:27 08/22/17 06:27 Labs: Short CBC 08/22/17 Range/Units 06:27 WBC 8.2 (4.3-11.1) K/mcL Hgb 10.9 L (12.9-16.9) g/dL Hct 36.0 L (37.5-50.1) % Plt Count 494 H (140-400) K/mcL Neutrophils # 6.6 (1.6-8.9) K/mcL BMP 08/21/17 08/22/17 21:06 06:27 Sodium 156 H 154 H Potassium 3.4 L Chloride 120 H Carbon Dioxide 21 BUN 57 H Creatinine 1.26 H Glucose 83 Calcium 9.4 Liver Function 08/22/17 Range/Units 06:27 Total Bilirubin 0.5 (0.2-1.2) mg/dL AST 41 H (5-34) Units/L ALT 77 H (0-55) Units/L Alkaline Phosphatase 156 H (38-126) Units/L Albumin 2.7 L (3.5-5.0) g/dL - ABG Interpretation ABG results: ABG ABG pH 7.32 pH Units (7.32-7.45) 08/21/17 14:22 ABG pCO2 55 mmHg (35-45) H 08/21/17 14:22 ABG pO2 120 mmHg (85-104) H 08/21/17 14:22 ABG O2 Saturation 98 % (95-98) 08/21/17 14:22 - Impressions Impressions Abdomen Ultrasound 08/21/17 13:06 IMPRESSION: Calcified gallbladder wall with prominent posterior shadowing. 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 No sonographic evidence for acute cholecystitis. D/ / Wilbert Cleaning MD / Wilbert Cleaning MD Interpreting Provider: Wilbert Cleaning MD - VTE Documentation of Mechanical Device: Intermittent pneumatic compression device Consult Discharge Plan - Plan Referrals: Mumtaz Woodward MD [Primary Care Provider] -
--- NOTE | 2017-08-22 16:19 | General Surgery Consult Note ---
<Tan Rasmussenadrianna Hu - Last Filed: 08/22/17 20:30> Date of Encounter: 08/22/17 Medications and Allergies ALPRAZolam [Xanax 0.5 MG Tablet] 0.5 mg PO DAILY 08/21/17 [History] Acetaminophen [Tylenol] 500 mg PO Q4H PRN 08/21/17 [History] Cranberry Fruit Extract [Cranberry] 425 mg PO BID 08/21/17 [History] Dicyclomine [Bentyl] 40 mg PO TID 08/21/17 [History] Divalproex Sodium [Depakote Sprinkle] 125 mg PO BID 08/21/17 [History] Folic Acid 1 mg PO DAILY 08/21/17 [History] Furosemide [Lasix] 20 mg PO DAILY 08/21/17 [History] HYDROcodone/Acet 5/325 mg [Greenleaf 5-325 mg] 1 tab PO Q6H PRN 08/21/17 [History] LevETIRAcetam [Keppra] 500 mg PO BID 08/21/17 [History] Melatonin 6 mg PO DAILY 08/21/17 [History] Pantoprazole Sodium [Protonix] 40 mg PO DAILY 08/21/17 [History] Thiamine (B-1) [Vitamin B-1] 100 mg PO TID 08/21/17 [History] 3 Allergy/AdvReac Type Severity Reaction Status Date / Time No Known Allergies Allergy Verified 08/20/17 16:24 Review of Systems All systems PM: A 10-system review of systems was performed and is negative for pertinent findings except as documented above in the HPI. General Surgery Exam Initial Vital Signs Temp Pulse Resp BP Pulse Ox 98.2 F 112 18 107/69 95 08/20/17 15:52 08/20/17 15:52 08/20/17 15:52 08/20/17 15:52 08/20/17 15:52 Exam Initial Vital Signs Temp Pulse Resp BP Pulse Ox 98.2 F 112 18 107/69 95 08/20/17 15:52 08/20/17 15:52 08/20/17 15:52 08/20/17 15:52 08/20/17 15:52 Results - Labs 08/22/17 06:27 08/22/17 06:27 Abnormal lab results RBC 3.45 M/mcL (4.19-5.50) L 08/22/17 06:27 Hgb 10.9 g/dL (12.9-16.9) L 08/22/17 06:27 Hct 36.0 % (37.5-50.1) L 08/22/17 06:27 MCV 104.3 fL (83.0-100.0) H 08/22/17 06:27 MCHC 30.3 g/dL (31.6-35.5) L 08/22/17 06:27 RDW 14.9 % (11.5-14.5) H 08/22/17 06:27 Plt Count 494 K/mcL (140-400) H 08/22/17 06:27 MPV 9.2 fL (9.4-12.4) L 08/22/17 06:27 ABG pCO2 55 mmHg (35-45) H 08/21/17 14:22 ABG pO2 120 mmHg (85-104) H 08/21/17 14:22 ABG HCO3 28 mEq/L (21-27) H 08/21/17 14:22 ABG Total CO2 30 mEq/L (20-26) H 08/21/17 14:22 Sodium 154 mEq/L (136-145) H 08/22/17 06:27 Potassium 3.4 mEq/L (3.5-4.5) L 08/22/17 06:27 Chloride 120 mEq/L (98-109) H 08/22/17 06:27 BUN 57 mg/dL (8-26) H 08/22/17 06:27 Creatinine 1.26 mg/dL (0.72-1.25) H 08/22/17 06:27 Est GFR (Non-Af Amer) 57 (> 60) L 08/22/17 06:27 BUN/Creatinine Ratio 45 (6-26) H 08/22/17 06:27 POC Glucose 100 (58-89) H 08/22/17 17:19 Calculated Osmolality 333 (280-300) H 08/22/17 06:27 Phosphorus 0.7 mg/dL (2.3-4.7) L* 08/22/17 06:27 AST 41 Units/L (5-34) H 08/22/17 06:27 ALT 77 Units/L (0-55) H 08/22/17 06:27 Alkaline Phosphatase 156 Units/L (38-126) H 08/22/17 06:27 Albumin 2.7 g/dL (3.5-5.0) L 08/22/17 06:27 Globulin 5.1 g/dL (2.4-3.5) H 08/22/17 06:27 Albumin/Globulin Ratio 0.5 (1.1-2.2) L 08/22/17 06:27 Urine Clarity Turbid (Clear) A 08/20/17 16:32 Urine Blood Small (Negative) H 08/20/17 16:32 Ur Leukocyte Esterase Large (Negative) H 08/20/17 16:32 Urine Microscopic WBC TNTC per hpf (0-3) H 08/20/17 16:32 Ur Squamous Epith Cells Moderate per lpf (None-Few) H 08/20/17 16:32 Urine Bacteria Moderate per hpf (None-Few) H 08/20/17 16:32 Ur Culture Indicated? YES (NO) A 08/20/17 16:32 Diabetes panel 08/21/17 08/22/17 Range/Units 21:06 06:27 Sodium 156 H 154 H (136-145) mEq/L Potassium 3.4 L (3.5-4.5) mEq/L Chloride 120 H (98-109) mEq/L Carbon Dioxide 21 (19-29) mEq/L BUN 57 H (8-26) mg/dL Creatinine 1.26 H (0.72-1.25) mg/dL Glucose 83 (70-99) mg/dL Calcium 9.4 (8.6-10.8) mg/dL AST 41 H (5-34) Units/L ALT 77 H (0-55) Units/L Alkaline Phosphatase 156 H (38-126) Units/L Albumin 2.7 L (3.5-5.0) g/dL Calcium panel 08/22/17 Range/Units 06:27 Calcium 9.4 (8.6-10.8) mg/dL Phosphorus 0.7 L* (2.3-4.7) mg/dL Albumin 2.7 L (3.5-5.0) g/dL Pituitary panel 08/21/17 08/22/17 Range/Units 21:06 06:27 Sodium 156 H 154 H (136-145) mEq/L Potassium 3.4 L (3.5-4.5) mEq/L Chloride 120 H (98-109) mEq/L Carbon Dioxide 21 (19-29) mEq/L BUN 57 H (8-26) mg/dL Creatinine 1.26 H (0.72-1.25) mg/dL Glucose 83 (70-99) mg/dL Calcium 9.4 (8.6-10.8) mg/dL Adrenal panel 08/21/17 08/22/17 Range/Units 21:06 06:27 Sodium 156 H 154 H (136-145) mEq/L Potassium 3.4 L (3.5-4.5) mEq/L Chloride 120 H (98-109) mEq/L Carbon Dioxide 21 (19-29) mEq/L BUN 57 H (8-26) mg/dL Creatinine 1.26 H (0.72-1.25) mg/dL Glucose 83 (70-99) mg/dL Calcium 9.4 (8.6-10.8) mg/dL Total Bilirubin 0.5 (0.2-1.2) mg/dL AST 41 H (5-34) Units/L ALT 77 H (0-55) Units/L Alkaline Phosphatase 156 H (38-126) Units/L Albumin 2.7 L (3.5-5.0) g/dL All other labs normal. Consult Discharge Plan - Plan Referrals: Mumtaz Woodward MD [Primary Care Provider] - - Attending Attestation I have personally seen and examined the patient. I have reviewed pertinent labs , imaging, progress notes, including this one. I agree with the above assessment and plan and wish to include the following... 66M who is largely non verbal so my history is based upon discussion with his POA. He suffered from dementia (Alzheimer's most likely) but was fully functional (able to walk 5-6 miles per day) about 5-6 months prior who now is difficult to communicate with (but is able to communicate that he is hungry. his exact words when asked are, "I'm famished!"), with a history of EtOH cirrhosis, is now comfort measures at present per the POA, who presents due to a concern for abdominal pain. He apparently was pointing towards his R abdomen at his nursing facility and it was interpreted as likely gall bladder related issues. On exam is abdomen is soft, on distended, and no obvious pain on exam; no scleral icterus nor jaundice; WBC is now within normal limits and his UA is consistent with a UTI. 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 The true concern is whether or not the stones seen on imaging are actually causing him pain and discomfort. Based upon exam, I would say no. Although with his history of EtOH cirrhosis, as per his POA, I would be cautious about taking such a patient to the operating room (even with the understanding that his child's class is likely an A). And while there MAY be a concern for cancer in the setting of a porcelein gallbladder, the real risk is actually low. All things considered, I would hold on performing a cholecystectomy in this patient. I would recommend a PO challenge. If his symptoms recur, then I can revisit the conversation with his POA and see if that is something she or the patient would want. In the meantime , I'd treat his UTI per the cultures. That may help alleviate some of his dementia as well. <Brittany Patel - Last Filed: 08/23/17 10:08> Date of Encounter: 08/23/17 Time of Encounter: 16:00 Assessment and Plan (1) Cholelithiasis Current Visit: Yes Status: Acute The patient is asymptomatic and no evidence of cholecystitis at this time Recommend advancing to soft, chopped meat diet as tolerated Supportive care No urgent indication for surgical intervention at this time Trend LFTs Qualifiers: Cholelithiasis location: gallbladder Cholecystitis presence: with cholecystitis Cholecystitis acuity: unspecified acuity Biliary obstruction: without biliary obstruction Qualified Code(s): K80.00 - Calculus of gallbladder with acute cholecystitis without obstruction History of Present Illness Consult date: 08/22/17 Reason for consult: gallstones Requesting physician: Cande Corona History of present illness: Mr. Corona is a 66 year old male with a history of severe Alzheimer's dementia. He presented to the ED with from his extended care facility after routine blood work showed a mildly elevated WBC count. He was has been admitted and treated for UTI, pneumonia, hyponatremia and acute kidney injury. The patient is unable to answer any questions during my interview with him. He is awake and moving all extremities. He had an US complete of his RUQ after a CT showed concerns for cholelithiasis. The US shows the possiblity of porcelain gallbladder. The patient does not exhibit any signs of abdominal pain during my interview with him. The patient does did tell Dr. Rasmussen that he was hungry during his interview. He does have mildly elevated liver function tests. We have been asked to see and evaluate the patient for recommendations. Past Med Surg Social Fam HX - Past Medical History Source: old records reviewed Medical history: cancer, GERD, hypertension, seizures, other (Alzheimer's dementia, neck mass, osteoarthritis) Psychiatric history: anxiety, other (Mood effective disorder) - Past Surgical History Surgical History: other (Uknown; patient does have a midline abdominal scar which is well healed) - Social History Smoking Status: Never smoker Smokeless Tobacco Status: No Alcohol use: none Drug use: none Review of Systems ROS unobtainable: due to mental status All systems PM: A 10-system review of systems was performed and is negative for pertinent findings except as documented above in the HPI. General Surgery Exam Initial Vital Signs Temp Pulse Resp BP Pulse Ox 98.2 F 112 18 107/69 95 08/20/17 15:52 08/20/17 15:52 08/20/17 15:52 08/20/17 15:52 08/20/17 15:52 - General physical appearance no distress, chronically ill - Eyes PERRL, normal ocular movement - ENT normal mucosa, atraumatic, normocephalic - Neck trachea midline - Respiratory normal respiratory effort, clear to auscultation, other (diminished bibasilar bases) - Cardiovascular Cardiovascular exam: Present: RRR (mildly tachycardic) - Abdomen Abdomen general surgery: Present: bowel sounds present, soft, non tender - Integumentary Integumentary general surgery: Present: warm and dry - Musculoskeletal Present: other (Movement of all extremities noted; Generalized deconditioning) - Psychiatric Psychiatric general surgery: Present: other (Unable to assess; patient is non- verbal) Exam Initial Vital Signs Temp Pulse Resp BP Pulse Ox 98.2 F 112 18 107/69 95 08/20/17 15:52 08/20/17 15:52 08/20/17 15:52 08/20/17 15:52 08/20/17 15:52 Results - Labs 08/23/17 06:34 08/23/17 06:34 Abnormal lab results RBC 3.45 M/mcL (4.19-5.50) L 08/22/17 06:27 Hgb 10.9 g/dL (12.9-16.9) L 08/22/17 06:27 Hct 36.0 % (37.5-50.1) L 08/22/17 06:27 MCV 104.3 fL (83.0-100.0) H 08/22/17 06:27 MCHC 30.3 g/dL (31.6-35.5) L 08/22/17 06:27 RDW 14.9 % (11.5-14.5) H 08/22/17 06:27 Plt Count 494 K/mcL (140-400) H 08/22/17 06:27 MPV 9.2 fL (9.4-12.4) L 08/22/17 06:27 ABG pCO2 55 mmHg (35-45) H 08/21/17 14:22 ABG pO2 120 mmHg (85-104) H 08/21/17 14:22 ABG HCO3 28 mEq/L (21-27) H 08/21/17 14:22 ABG Total CO2 30 mEq/L (20-26) H 08/21/17 14:22 Sodium 154 mEq/L (136-145) H 08/22/17 06:27 Potassium 3.4 mEq/L (3.5-4.5) L 08/22/17 06:27 Chloride 120 mEq/L (98-109) H 08/22/17 06:27 BUN 57 mg/dL (8-26) H 08/22/17 06:27 Creatinine 1.26 mg/dL (0.72-1.25) H 08/22/17 06:27 Est GFR (Non-Af Amer) 57 (> 60) L 08/22/17 06:27 BUN/Creatinine Ratio 45 (6-26) H 08/22/17 06:27 Calculated Osmolality 333 (280-300) H 08/22/17 06:27 Phosphorus 0.7 mg/dL (2.3-4.7) L* 08/22/17 06:27 AST 41 Units/L (5-34) H 08/22/17 06:27 ALT 77 Units/L (0-55) H 08/22/17 06:27 Alkaline Phosphatase 156 Units/L (38-126) H 08/22/17 06:27 Albumin 2.7 g/dL (3.5-5.0) L 08/22/17 06:27 Globulin 5.1 g/dL (2.4-3.5) H 08/22/17 06:27 Albumin/Globulin Ratio 0.5 (1.1-2.2) L 08/22/17 06:27 Urine Clarity Turbid (Clear) A 08/20/17 16:32 Urine Blood Small (Negative) H 08/20/17 16:32 Ur Leukocyte Esterase Large (Negative) H 08/20/17 16:32 Urine Microscopic WBC TNTC per hpf (0-3) H 08/20/17 16:32 Ur Squamous Epith Cells Moderate per lpf (None-Few) H 08/20/17 16:32 Urine Bacteria Moderate per hpf (None-Few) H 08/20/17 16:32 Ur Culture Indicated? YES (NO) A 08/20/17 16:32 Diabetes panel 08/21/17 08/22/17 Range/Units 21:06 06:27 Sodium 156 H 154 H (136-145) mEq/L Potassium 3.4 L (3.5-4.5) mEq/L Chloride 120 H (98-109) mEq/L Carbon Dioxide 21 (19-29) mEq/L BUN 57 H (8-26) mg/dL Creatinine 1.26 H (0.72-1.25) mg/dL Glucose 83 (70-99) mg/dL Calcium 9.4 (8.6-10.8) mg/dL AST 41 H (5-34) Units/L ALT 77 H (0-55) Units/L Alkaline Phosphatase 156 H (38-126) Units/L Albumin 2.7 L (3.5-5.0) g/dL Calcium panel 08/22/17 Range/Units 06:27 Calcium 9.4 (8.6-10.8) mg/dL Phosphorus 0.7 L* (2.3-4.7) mg/dL Albumin 2.7 L (3.5-5.0) g/dL Pituitary panel 08/21/17 08/22/17 Range/Units 21:06 06:27 Sodium 156 H 154 H (136-145) mEq/L Potassium 3.4 L (3.5-4.5) mEq/L Chloride 120 H (98-109) mEq/L Carbon Dioxide 21 (19-29) mEq/L BUN 57 H (8-26) mg/dL Creatinine 1.26 H (0.72-1.25) mg/dL Glucose 83 (70-99) mg/dL Calcium 9.4 (8.6-10.8) mg/dL Adrenal panel 08/21/17 08/22/17 Range/Units 21:06 06:27 Sodium 156 H 154 H (136-145) mEq/L Potassium 3.4 L (3.5-4.5) mEq/L Chloride 120 H (98-109) mEq/L Carbon Dioxide 21 (19-29) mEq/L BUN 57 H (8-26) mg/dL Creatinine 1.26 H (0.72-1.25) mg/dL Glucose 83 (70-99) mg/dL Calcium 9.4 (8.6-10.8) mg/dL Total Bilirubin 0.5 (0.2-1.2) mg/dL AST 41 H (5-34) Units/L ALT 77 H (0-55) Units/L Alkaline Phosphatase 156 H (38-126) Units/L Albumin 2.7 L (3.5-5.0) g/dL All other labs normal. - Imaging CT scan - abdomen: report reviewed CT scan - pelvis: report reviewed US - abdomen: report reviewed Additional studies: Abdomen/Pelvis CT 08/20/17 16:16 IMPRESSION: No acute abnormality of the abdomen or pelvis. Findings of the gallbladder most likely due to rim calcified gallstones although gallbladder wall calcification from chronic cholecystitis could also have this appearance. Mild bibasilar airspace disease which may either be due to atelectasis or pneumonia. D/ / Binu Ferrera MD / Binu Ferrera MD Interpreting Provider: Binu Ferrera MD Chest X-Ray 08/20/17 16:29 IMPRESSION: Minimal heterogeneous opacity at the right mid lung and right base, for which pneumonitis could be considered in the appropriate clinical setting. Follow-up to resolution is recommended to exclude the possibility of underlying pulmonary nodule. D/ / Charanjit Samuels MD / Charanjit Samuels MD Interpreting Provider: Charanjit Samuels MD Abdomen Ultrasound 08/21/17 13:06 IMPRESSION: Calcified gallbladder wall with prominent posterior shadowing. 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 No sonographic evidence for acute cholecystitis. D/ / Wilbert Cleaning MD / Wilbert Cleaning MD Interpreting Provider: Wilbert Cleaning MD - Attending Attestation For this encounter, I have reviewed the B[employer] or PA documentation, treatment plan, and medical decision making; and I have had face to face time with this patient.
[2017-08-22] MEDS: Melatonin 3 MG TABLET PO SCH (19:38)
[2017-08-23] MEDS: Piperacillin/Tazobactam 3.375 GM in D5% in Water 50 ML IVPB SCH ×2 (00:38→08:09)
[2017-08-23] MEDS: Acetaminophen 325 MG TABLET PO PRN ×2 (00:40→14:29)
[2017-08-23] MEDS: ALPRAZolam 0.5 MG TABLET PO SCH (00:41)
[2017-08-23] MEDS: *HR* HYDROcodone/Acet 5/325 mg TABLET PO PRN ×2 (05:59→11:59)
[2017-08-23] MEDS: *HR* Heparin 5,000 UNIT/ML VIAL SQ SCH (05:59)
[2017-08-23 06:53] LABS: Basophils % 0.3 %; Eosinophils # 0.2 K/mcL (0.0-0.6); Eosinophils % 2.4 %; Hematocrit 31.5 % (37.5-50.1); Hemoglobin 9.5 g/dL (12.9-16.9); Immature Granulocytes % 0.3 % (0-4); Lymphocytes # 1.1 K/mcL (0.6-4.6); Lymphocytes % 17.6 %; Mean Corpuscular HGB Conc 30.2 g/dL (31.6-35.5); Mean Corpuscular Hemoglobin 31.1 pg (28.0-33.3); Mean Corpuscular Volume 103.3 fL (83.0-100.0); Monocytes # 0.2 K/mcL (0.0-1.3); Monocytes % 3.6 %; Neutrophils # 4.8 K/mcL (1.6-8.9); Platelet Count 413 K/mcL (140-400); Red Blood Count 3.05 M/mcL (4.19-5.50); Red Cell Distribution Width 14.9 % (11.5-14.5); Segmented Neutrophils % 75.8 %
[2017-08-23 07:22] LABS: Alanine Aminotransferase 59 Units/L (0-55); Albumin 2.4 g/dL (3.5-5.0); Albumin/Globulin Ratio 0.5 (1.1-2.2); Alkaline Phosphatase 127 Units/L (38-126); Aspartate Amino Transferase 40 Units/L (5-34); BUN/Creatinine Ratio 39 (6-26); Bilirubin,Total 0.4 mg/dL (0.2-1.2); Blood Urea Nitrogen 51 mg/dL (8-26); Calcium 8.5 mg/dL (8.6-10.8); Carbon Dioxide 24 mEq/L (19-29); Chloride 121 mEq/L (98-109); Globulin 4.5 g/dL (2.4-3.5); Glucose 86 mg/dL (70-99); Magnesium 2.3 mg/dL (1.6-2.6); Osmolality,Calculated 331 (280-300); Potassium 3.3 mEq/L (3.5-4.5); Total Protein 6.9 g/dL (6.0-8.3); eGFR For African Americans > 60 (> 60); eGFR For Non-African Americans 55 (> 60)
[2017-08-23 07:23] LABS: Phosphorous 2.7 mg/dL (2.3-4.7); Sodium 154 mEq/L (136-145)
[2017-08-23] MEDS: Furosemide 20 MG TABLET PO SCH (08:08)
[2017-08-23] MEDS: Thiamine (B-1) 100 MG TABLET PO SCH ×2 (08:09→14:25)
[2017-08-23] MEDS: Folic Acid 1 MG TABLET PO SCH (08:09)
[2017-08-23] MEDS: CRANBERRY FRUIT EXTRACT 425 MG PO SCH (08:09)
[2017-08-23] MEDS: levETIRAcetam 500 MG/5 ML UDC PO SCH (08:09)
[2017-08-23] MEDS: Divalproex Sodium 125 MG CAPSULE PO SCH (08:09)
--- NOTE | 2017-08-23 09:03 | Palliative Progress Note ---
Date of Encounter: 08/23/17 Time of Encounter: 09:00 - Assessment and plan (1) Dyspnea Current Visit: Yes Status: Acute Assessment and plan: Appears improved - on nasal cannula and has not required bipap overnight. Continues treatment for pneumonia Qualifiers: Dyspnea type: unspecified Qualified Code(s): R06.00 - Dyspnea, unspecified (2) Goals of care, counseling/discussion Current Visit: Yes Status: Acute Assessment and plan: Code status transitioned to DNRCC yesterday per GUSTAVO Pierre. State form completed and place in pt record here. Appears to be improving with treatment for pneumonia and UTI. Palliative will follow from a distance. (3) Pneumonia Current Visit: Yes Status: Acute Qualifiers: Pneumonia type: due to unspecified organism Laterality: right Lung location: lower lobe of lung Qualified Code(s): J18.1 - Lobar pneumonia, unspecified organism (4) Urinary tract infection Current Visit: Yes Status: Acute Qualifiers: Urinary tract infection type: acute cystitis Hematuria presence: with hematuria Qualified Code(s): N30.01 - Acute cystitis with hematuria - Time Spent With Patient Total time spent is greater than 50% in coordination of care (as documented) at patient's floor/unit and/or counseling patient: 25 - 35 minutes - Subjective Interval history: Patient awake and taking medications. Nonverbal with me this am, and not answering any questions. Nurse states he will speak out at times. Appears in no distress. Surgical consult and recommendations reviewed - no intervention warranted at this time. - Constitutional Vitals: Abnormal lab results RBC 3.05 M/mcL (4.19-5.50) L 08/23/17 06:34 Hgb 9.5 g/dL (12.9-16.9) L 08/23/17 06:34 Hct 31.5 % (37.5-50.1) L 08/23/17 06:34 MCV 103.3 fL (83.0-100.0) H 08/23/17 06:34 MCHC 30.2 g/dL (31.6-35.5) L 08/23/17 06:34 RDW 14.9 % (11.5-14.5) H 08/23/17 06:34 Plt Count 413 K/mcL (140-400) H 08/23/17 06:34 MPV 9.0 fL (9.4-12.4) L 08/23/17 06:34 ABG pCO2 55 mmHg (35-45) H 08/21/17 14:22 ABG pO2 120 mmHg (85-104) H 08/21/17 14:22 ABG HCO3 28 mEq/L (21-27) H 08/21/17 14:22 ABG Total CO2 30 mEq/L (20-26) H 08/21/17 14:22 Sodium 154 mEq/L (136-145) H 08/23/17 06:34 Potassium 3.3 mEq/L (3.5-4.5) L 08/23/17 06:34 Chloride 121 mEq/L (98-109) H 08/23/17 06:34 BUN 51 mg/dL (8-26) H 08/23/17 06:34 Creatinine 1.30 mg/dL (0.72-1.25) H 08/23/17 06:34 Est GFR (Non-Af Amer) 55 (> 60) L 08/23/17 06:34 BUN/Creatinine Ratio 39 (6-26) H 08/23/17 06:34 Calculated Osmolality 331 (280-300) H 08/23/17 06:34 Calcium 8.5 mg/dL (8.6-10.8) L 08/23/17 06:34 AST 40 Units/L (5-34) H 08/23/17 06:34 ALT 59 Units/L (0-55) H 08/23/17 06:34 Alkaline Phosphatase 127 Units/L (38-126) H 08/23/17 06:34 Albumin 2.4 g/dL (3.5-5.0) L 08/23/17 06:34 Globulin 4.5 g/dL (2.4-3.5) H 08/23/17 06:34 Albumin/Globulin Ratio 0.5 (1.1-2.2) L 08/23/17 06:34 Urine Clarity Turbid (Clear) A 08/20/17 16:32 Urine Blood Small (Negative) H 08/20/17 16:32 Ur Leukocyte Esterase Large (Negative) H 08/20/17 16:32 Urine Microscopic WBC TNTC per hpf (0-3) H 11/12/17 16:32 Ur Squamous Epith Cells Moderate per lpf (None-Few) H 08/20/17 16:32 Urine Bacteria Moderate per hpf (None-Few) H 08/20/17 16:32 Ur Culture Indicated? YES (NO) A 08/20/17 16:32 General appearance: Present: no acute distress - Respiratory Respiratory exam: Present: decreased breath sounds, CTAB Additional comments: Shallow inspiratory effort - Cardiovascular Cardiovascular exam: Present: +S1, +S2 - GI/Abdominal GI/Abdominal exam: Present: normal bowel sounds, soft - Extremities Exam Extremities exam: Present: normal capillary refill, normal inspection Additional comments: Old scabbed abrasion rt ankle - Neurological Exam Neurological exam: Present: alert Additional comments: Nonverbal - unable to assess orientation. - Skin Skin exam: Present: dry, pallor, warm Palliative Quality Palliative Quality: Screen for Code Status: NA (Awaiting clarification of POA), Screen for Goals of Care: NA, Screen for Pain: NA, If Pain Regimen Started, Initiate Bowel Regimen: NA, Screen for Nausea/Vomitting: NA Code Status: 08/22/17 14:08 DNR [Resuscitation Status: Active] [RES] Routine Comment: Resuscitation Status: DNR-Comfort Care - Labs CBC & Chem 7: 08/23/17 06:34 08/23/17 06:34 Labs: Laboratory Results - last 24 hr 08/22/17 08/23/17 08/23/17 17:19 00:06 05:57 WBC RBC Hgb Hct MCV MCH MCHC RDW Plt Count MPV Immature Gran % Seg Neutrophils % Lymphocytes % Monocytes % Eosinophils % Basophils % Neutrophils # Lymphocytes # Monocytes # Eosinophils # Basophils # Sodium Potassium Chloride Carbon Dioxide BUN Creatinine Est GFR ( Amer) Est GFR (Non-Af Amer) BUN/Creatinine Ratio Glucose POC Glucose 100 H 93 H 77 Calculated Osmolality Calcium Phosphorus Magnesium Total Bilirubin AST ALT Alkaline Phosphatase Serum Total Protein Albumin Globulin Albumin/Globulin Ratio 08/23/17 08/23/17 06:34 06:34 WBC 6.3 RBC 3.05 L Hgb 9.5 L Hct 31.5 L MCV 103.3 H MCH 31.1 MCHC 30.2 L RDW 14.9 H Plt Count 413 H MPV 9.0 L Immature Gran % 0.3 Seg Neutrophils % 75.8 Lymphocytes % 17.6 Monocytes % 3.6 Eosinophils % 2.4 Basophils % 0.3 Neutrophils # 4.8 Lymphocytes # 1.1 Monocytes # 0.2 Eosinophils # 0.2 Basophils # 0.0 Sodium 154 H Potassium 3.3 L Chloride 121 H Carbon Dioxide 24 BUN 51 H Creatinine 1.30 H Est GFR ( Amer) > 60 Est GFR (Non-Af Amer) 55 L BUN/Creatinine Ratio 39 H Glucose 86 POC Glucose Calculated Osmolality 331 H Calcium 8.5 L Phosphorus 2.7 D Magnesium 2.3 Total Bilirubin 0.4 AST 40 H ALT 59 H Alkaline Phosphatase 127 H Serum Total Protein 6.9 Albumin 2.4 L Globulin 4.5 H Albumin/Globulin Ratio 0.5 L - ABG Interpretation ABG results: ABG ABG pH 7.32 pH Units (7.32-7.45) 08/21/17 14:22 ABG pCO2 55 mmHg (35-45) H 08/21/17 14:22 ABG pO2 120 mmHg (85-104) H 08/21/17 14:22 ABG O2 Saturation 98 % (95-98) 08/21/17 14:22 Consult Discharge Plan - Plan Referrals: Mumtaz Woodward MD [Primary Care Provider] -
--- NOTE | 2017-08-23 14:00 | Discharge Summary ---
Date of Encounter: 08/23/17 Time of Encounter: 10:06 - Discharge Diagnosis (1) Porcelain gallbladder Priority: Secondary Status: Acute (2) Right upper quadrant pain Priority: Primary Status: Acute (3) Cholelithiasis Priority: Secondary Status: Acute Qualifiers: Cholelithiasis location: gallbladder Cholecystitis presence: with cholecystitis Cholecystitis acuity: unspecified acuity Biliary obstruction: without biliary obstruction Qualified Code(s): K80.00 - Calculus of gallbladder with acute cholecystitis without obstruction (4) Transaminitis Priority: Secondary Status: Acute (5) Pneumonia Priority: Primary Status: Acute Qualifiers: Pneumonia type: due to unspecified organism Laterality: right Lung location: lower lobe of lung Qualified Code(s): J18.1 - Lobar pneumonia, unspecified organism (6) CONTRERAS (acute kidney injury) Priority: Secondary Status: Acute (7) Hypernatremia Priority: Secondary Status: Acute (8) Urinary tract infection Priority: Primary Status: Acute Qualifiers: Urinary tract infection type: acute cystitis Hematuria presence: with hematuria Qualified Code(s): N30.01 - Acute cystitis with hematuria (9) Alzheimers disease Priority: Secondary Status: Chronic Qualifiers: Alzheimer's disease onset: unspecified onset Dementia behavioral disturbance: without behavioral disturbance Qualified Code(s): G30.9 - Alzheimer's disease, unspecified; F02.80 - Dementia in other diseases classified elsewhere without behavioral disturbance; F02.80 - Dementia in other diseases classified elsewhere without behavioral disturbance; F02.80 - Dementia in other diseases classified elsewhere without behavioral disturbance (10) DVT prophylaxis Priority: Secondary Status: Acute - Discharge Medications Prescriptions: ALPRAZolam [Xanax 0.5 MG Tablet] 0.5 mg PO DAILY #10 tablet Amoxicillin/Clavulanate [Augmentin] 875 mg PO BIDWM #15 tablet Dicyclomine [Bentyl] 40 mg PO TID #20 capsule HYDROcodone/Acet 5/325 mg [[place] 5-325 mg] 1 tab PO Q6H PRN #20 tablet PRN Reason: Pain Home Medications: Acetaminophen [Tylenol] 500 mg PO Q4H PRN 08/21/17 [History] Cranberry Fruit Extract [Cranberry] 425 mg PO BID 08/21/17 [History] Divalproex Sodium [Depakote Sprinkle] 125 mg PO BID 08/21/17 [History] Folic Acid 1 mg PO DAILY 08/21/17 [History] Furosemide [Lasix] 20 mg PO DAILY 08/21/17 [History] LevETIRAcetam [Keppra] 500 mg PO BID 08/21/17 [History] Melatonin 6 mg PO DAILY 08/21/17 [History] Pantoprazole Sodium [Protonix] 40 mg PO DAILY 08/21/17 [History] Thiamine (B-1) [Vitamin B-1] 100 mg PO TID 08/21/17 [History] ALPRAZolam [Xanax 0.5 MG Tablet] 0.5 mg PO DAILY #10 tablet 08/23/17 [Rx] Amoxicillin/Clavulanate [Augmentin] 875 mg PO BIDWM #15 tablet 08/23/17 [Rx] Dicyclomine [Bentyl] 40 mg PO TID #20 capsule 08/23/17 [Rx] Docusate [Colace] 100 mg PO BID PRN capsule 08/23/17 [Rx] HYDROcodone/Acet 5/325 mg [[place] 5-325 mg] 1 tab PO Q6H PRN #20 tablet 08/23/17 [Rx] Allergies/Adverse Reactions: 3 Allergy/AdvReac Type Severity Reaction Status Date / Time No Known Allergies Allergy Verified 08/20/17 16:24 Procedures/tests Complete & Pending: Procedures Performed prior 72 hours Category Date Time Status US abdomen limited [US] Stat Exams 08/21/17 13:06 Completed ECG 12 lead ECG [ECG] Stat Y 08/21/17 13:43 Completed Date of admission: 08/21/17 01:11 Primary care physician: Mumtaz Woodward MD Consults: 08/21/17 15:19 Consult to [facility] Apprentice [CONS] Routine Reason for SW Consult: assist in trying to get POA paperwork 08/21/17 15:30 Consult to Palliative Care [CONS] Routine Comment: Consulting Provider: [facility] Reason for Consult: establish goals of care and advance directives Call Completed: Yes 08/22/17 07:55 Consult to Surgery [CONS] Routine Consulting Provider: [facility] Reason for Consult: porcelein gallbladder Call Completed: Yes Discharging clinician: Cande Corona Anticipated date of discharge: 08/23/17 - Patient Status Disposition: Transfer SNF Condition: Good Functional capacity at discharge: bed bound Overall status at discharge: patient is back to baseline - Discharge Instructions Follow Up With: Mumtaz Woodward MD [Primary Care Provider] - Additional Instructions: Please follow up with your primary care physician within five days after your discharge from the hospital. Please continue oral antibiotics as prescribed, first dose tonight DIET: Mechanically altered DIET ground meat Use oxygen as needed resume all other home medications as prescribed by your primary care physician - Diet and Activity Activity: wear oxygen at all times (wear oxygen to maintain O2>92%) Diet: other (mechanically altered diet ) Hospital course: Mr. Corona is a 66 year old male with PMH Of severe alzheimer's dementia who was admitted from [facility] for abnormal labs. Patient was found to have UTI, PNA, and elevated transaminitis. He was noted to have RUQ abd pain for which he had abd US. Abd US reported porcelein gallbladder. Surgery consultation was requested but no acute intervention was recommended. Pt was also seen by palliative care team. Extensive discussions were held with the patient's POA by palliative care team and decision was made to change patient's code status to DNRCC as per his wishes. He was noted to have intermittent apneic spells which resolved spontaneously. At this time he back to his baseline clinical status and will be discharged back to [facility]. He is to continue oral abx. - Time Spent with Patient Total time spent providing and/or coordinating discharge services: Greater than 30 minutes - Constitutional Vitals: Temp Pulse Resp BP Pulse Ox 98.6 F 101 19 98/68 100 08/23/17 11:26 08/23/17 11:26 08/23/17 11:26 08/23/17 11:26 08/23/17 11:26 General appearance: Present: A&O X 0, no acute distress - Head Head exam: Present: atraumatic, normocephalic - Respiratory Respiratory exam: Present: CTAB. Absent: respiratory distress, wheezes - Cardiovascular Cardiovascular exam: Present: RRR, +S1, +S2 - GI/Abdominal GI/Abdominal exam: Present: normal bowel sounds, soft, no peritoneal signs. Absent: distended, tenderness - Extremities Exam Extremities exam: Present: warm, radial pulses palpable and symmetrical. Absent : calf tenderness, cyanotic, pedal edema - Neurological Exam Neurological exam: Present: alert - VTE Documentation of Mechanical Device: Intermittent pneumatic compression device
--- NOTE | 2017-08-23 14:08 | Physician Discharge Referral ---
ExtendedCare Referral Info Transfer To: [facility] - Diagnosis (1) Porcelain gallbladder Priority: Secondary Status: Acute (2) Right upper quadrant pain Priority: Primary Status: Acute (3) Cholelithiasis Priority: Secondary Status: Acute (4) Transaminitis Priority: Secondary Status: Acute (5) Pneumonia Priority: Primary Status: Acute (6) CONTRERAS (acute kidney injury) Priority: Secondary Status: Resolved (7) Hypernatremia Priority: Secondary Status: Acute (8) Urinary tract infection Priority: Primary Status: Acute (9) Alzheimers disease Priority: Secondary Status: Chronic (10) DVT prophylaxis Priority: Secondary Status: Acute - Transfer Medications Prescriptions: ALPRAZolam [Xanax 0.5 MG Tablet] 0.5 mg PO DAILY #10 tablet Amoxicillin/Clavulanate [Augmentin] 875 mg PO BIDWM #15 tablet Dicyclomine [Bentyl] 40 mg PO TID #20 capsule HYDROcodone/Acet 5/325 mg [[place] 5-325 mg] 1 tab PO Q6H PRN #20 tablet PRN Reason: Pain Home Medications: Acetaminophen [Tylenol] 500 mg PO Q4H PRN 08/21/17 [History] Cranberry Fruit Extract [Cranberry] 425 mg PO BID 08/21/17 [History] Divalproex Sodium [Depakote Sprinkle] 125 mg PO BID 08/21/17 [History] Folic Acid 1 mg PO DAILY 08/21/17 [History] Furosemide [Lasix] 20 mg PO DAILY 08/21/17 [History] LevETIRAcetam [Keppra] 500 mg PO BID 08/21/17 [History] Melatonin 6 mg PO DAILY 08/21/17 [History] Pantoprazole Sodium [Protonix] 40 mg PO DAILY 08/21/17 [History] Thiamine (B-1) [Vitamin B-1] 100 mg PO TID 08/21/17 [History] ALPRAZolam [Xanax 0.5 MG Tablet] 0.5 mg PO DAILY #10 tablet 08/23/17 [Rx] Amoxicillin/Clavulanate [Augmentin] 875 mg PO BIDWM #15 tablet 08/23/17 [Rx] Dicyclomine [Bentyl] 40 mg PO TID #20 capsule 08/23/17 [Rx] Docusate [Colace] 100 mg PO BID PRN capsule 08/23/17 [Rx] HYDROcodone/Acet 5/325 mg [[place] 5-325 mg] 1 tab PO Q6H PRN #20 tablet 08/23/17 [Rx] Allergies/Adverse Reactions: 3 Allergy/AdvReac Type Severity Reaction Status Date / Time No Known Allergies Allergy Verified 08/20/17 16:24 - Respiratory Orders Oxygen / L per min (2L/min to maintain O2>92%) Smoking Cessation: Smoking cessation has been advised. For more information, call the [place] Tobacco Quit Line at 2-167-SGXN-NOW. - Treatments List/Other: Please follow up with your primary care physician within five days after your discharge from the hospital. Please continue oral antibiotics as prescribed, first dose tonight DIET: Mechanically altered DIET ground meat Use oxygen as needed resume all other home medications as prescribed by your primary care physician CERTIFICATION: I certify that the transfer of the above named patient to an Extended Care Facility is necessary for the continuing treatment of the diagnosis listed. The above information is true and accurate reflection of patient's current condition. Confidential - Redisclosure prohibited without a patient's written consent.
[2017-08-23 14:46] VITALS: BP 98/61
--- NOTE | 2017-08-23 15:48 | Electrocardiograph Report ---
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
== END 2017-08-23 17:02 | DRG 689 ==
LOC: EMEROO 15:51 → 3ANU 15:51 → SUATTDRO 08-21 01:11
PROVIDERS: ADMIT Hospitalist; ATTEND Internal Medicine